=== PATIENT | male | born 1990 | race Caucasian/White ===

== ENCOUNTER 2021-06-04 09:46 | Emergency (ER) | payer OTHER ==
[~2021-06-04] VITALS: Ht 188 cm; Wt 82.5 kg
--- NOTE | 2021-06-04 10:29 | REP ---
INDICATION: CP COMPARISON: None. TECHNIQUE: PA/Lateral FINDINGS: Lungs: Clear, no infiltrate. Heart: Normal in size. Mediastinum: Mediastinal silhouette unremarkable. Pleural angles: Unremarkable.. Bones and soft tissues: Unremarkable. IMPRESSION: No acute pulmonary disease. <Electronically signed by Mike Armenta > 06/04/21 [id number]
[2021-06-04] MEDS ORDERED: GI COCKTAIL 50ML BTL(HYOSCYAMINE/MAALOX/LIDOCAINE VISCOUS)(1:3:1) PO ONE (11:50)
[2021-06-04] MEDS ORDERED: KETOROLAC 30 MG/ML 1ML VIAL IV ONE (11:50)
[2021-06-04] MEDS ORDERED: PANTOPRAZOLE 40MG VIAL (C9113 PER 1) IV ONE (11:50)
[2021-06-04 12:21] LABS: BASO % 0.4 % (0.0-1.0); EOS # 0.1 10^3/uL (0.0-0.5); EOS % 1.6 % (0.0-3.0); HEMATOCRIT 46.1 % (42.0-52.0); HEMOGLOBIN 15.3 g/dl (13.5-17.5); LYMPH # 1.1 10^3/uL (1.5-5.0); LYMPH % 15.6 % (24.0-44.0); MEAN CORPUSCULAR HEMOGLOBIN 29.7 pg (27.0-33.0); MEAN CORPUSCULAR HGB CONC 33.2 g/dl (32.0-36.5); MEAN CORPUSCULAR VOLUME 89.3 fl (80.0-96.0); MONO # 0.4 10^3/uL (0.0-0.8); MONO % 5.6 % (2.0-8.0); NEUTROPHILS # 5.2 10^3/uL (1.5-8.5); NEUTROPHILS % 76.4 % (36.0-66.0); PLATELET COUNT, AUTOMATED 259 10^3/uL (150-450); RED BLOOD COUNT 5.16 10^6/uL (4.30-6.10); WHITE BLOOD COUNT 6.8 10^3/uL (4.0-10.0)
[2021-06-04 12:46] LABS: ALT/SGPT 20 U/L (12-78); BILIRUBIN,DIRECT 0.2 MG/DL (0.0-0.2); BILIRUBIN,TOTAL 0.9 MG/DL (0.2-1.0); CK-MB VALUE MASS < 1.0 NG/ML (<3.6); CPK CREATINE PHOSPHOKINASE 99 U/L (39-308); LIPASE 100 U/L (73-393); MB/CK RELATIVE INDEX 1.01 (< OR =4); TROPONIN I < 0.02 NG/ML (< 0.10)
[2021-06-04 13:08] LABS: BLOOD UREA NITROGEN 19 MG/DL (7-18); CARBON DIOXIDE LEVEL 30 MEQ/L (21-32); CHLORIDE LEVEL 105 MEQ/L (98-107); CREATININE FOR GFR 1.06 MG/DL (0.70-1.30); GLOMERULAR FILTRATION RATE > 60.0 (>60); GLUCOSE, FASTING 64 MG/DL (70-100); SODIUM LEVEL 141 MEQ/L (136-145)
[2021-06-04] MEDS ORDERED: NAPR-837 PO (13:32)
[2021-06-04] MEDS ORDERED: OMEP-218 PO (13:32)
[2021-06-04 14:11] VITALS: BP 128/68
--- NOTE | 2021-06-05 20:01 | ECGEPIP ---
[facility] - ED Test Date: 2021-06-04 Pat Name: KEENA FERNÁNDEZ Department: Room: - Gender: Male [employer]: HC : 1990 Requested By: Mere Christine Order Number: [id number] Reading MD: Mere Christine Measurements Intervals [place] Rate: 79 P: 47 UT: 148 QRS: 75 QRSD: 78 T: 57 QT: 340 QTc: 389 Interpretive Statements Normal sinus rhythm No prior Electronically Signed on 06-05-2021 20:00:39 EDT by Mere Christine
== END 2021-06-04 14:14 | disposition home or self-care (01) ==
LOC: M ED 09:46
DX: R07.89 Other chest pain (principal); Z88.8 Allergy status to other drugs, medicaments and biological substances; Z82.49 Family history of ischemic heart disease and other diseases of the circulatory system; Z87.09 Personal history of other diseases of the respiratory system
CPT/HCPCS: 71046; 80048; 80076; 82550; 82553; 83690; 84484; 85025; 85379; 93005; 94760; 96374; 96375; 99284; C9113; J1885

== ENCOUNTER → 2021-11-13 | Outpatient (REF) ==
[~2021-11-13] MED LIST: NAPR-837 PO; OMEP-218 PO
--- NOTE | 2021-11-13 11:59 | REP ---
INDICATION: SOB. COMPARISON: 06/04/2021 TECHNIQUE: PA and lateral FINDINGS: The superior mediastinal structures are midline. The cardiac silhouette is unremarkable in size, shape, and position. The diaphragmatic surfaces of the lungs are regular, and the costophrenic angles are clear. The pulmonary greer are clear. The imaged osseous structures are intact. IMPRESSION: There is no acute cardiopulmonary disease. No change from the prior exam. <Electronically signed by Vidal Swan > 11/13/21 [id number]
== END ==
LOC: M PLAIMG 11:30
PROVIDERS: ATTEND Internal Medicine
DX: R06.02 Shortness of breath (principal)